=== PATIENT | female | born 1985 | race Hispanic/Latino ===

== ENCOUNTER 2019-07-23 11:32 | Observation (INO) | payer OTHER ==
[~2019-07-23] VITALS: Ht 160 cm; Wt 96.6 kg
[2019-07-23] MEDS ORDERED: PHARMACY COMMUNICATION MISC SCH (12:30)
[2019-07-23 12:51] LABS: BASOPHILS % (AUTO) 0.4 % (0.0-5.0); EOSINOPHILS % (AUTO) 0.6 % (0.0-8.0); HEMATOCRIT 28.5 % (36-48); LYMPHOCYTES % (AUTO) 26.2 % (21.0-51.0); MEAN CORPUSCULAR HEMOGLOBIN 30.1 pg (27.0-33.0); MEAN CORPUSCULAR HGB CONC 35.9 g/dL (32.0-36.0); MEAN CORPUSCULAR VOLUME 83.8 fL (79-99); MONOCYTES % (AUTO) 5.7 % (3.0-13.0); NEUTROPHILS % (AUTO) 67.1 % (40.0-77.0); PLATELET COUNT (AUTO) 234 K/uL (130-400); RED BLOOD CELL COUNT(AUTO) 3.41 MIL/uL (4.00-5.50); RED CELL DISTRIBUTION WIDTH 12.2 % (11.0-15.5); WHITE BLOOD COUNT (AUTO) 7.2 K/uL (4.8-10.8)
[2019-07-23 12:52] LABS: APPEARANCE,URINE Clear (CLEAR); BILIRUBIN,URINE Negative (NEGATIVE); COLOR,URINE Yellow (YELLOW); GLUCOSE, URINE (UA) Negative (NEGATIVE); KETONES,URINE Negative (NEGATIVE); LEUKOCYTE ESTERASE ,URINE Negative (NEGATIVE); NITRATE,URINE Negative (NEGATIVE); OCCULT BLOOD,URINE Negative (NEGATIVE); PH,URINE 6.5 (5.0-8.0); PROTEIN,URINE Negative (NEGATIVE); UROBILINOGEN,URINE 0.2 mg/dL (0.2-1.0)
[2019-07-23 13:03] LABS: CREATININE 0.8 mg/dL (0.5-1.5); POTASSIUM 3.3 mmol/L (3.5-5.1)
[2019-07-23 13:04] LABS: INR 0.89 (0.85-1.15); PARTIAL THROMBOPLASTIN TIME 24.3 SEC (26.3-35.5); PROTHROMBIN TIME 9.4 SEC (9.6-11.6)
[2019-07-23 13:07] LABS: ALBUMIN 2.7 g/dL (3.5-5.0); BILIRUBIN,TOTAL 1.1 mg/dL (0.2-1.0); TOTAL PROTEIN, SERUM 6.5 g/dL (6.0-8.3); URIC ACID 2.5 mg/dL (2.6-7.2)
[2019-07-23] MEDS: CELESTONE SOLUSPAN 6 MG/ML 5ML VIAL IM SCH (13:56)
[2019-07-23 15:11] VITALS: BP 159/92
[2019-07-23] MEDS: ACETAMINOPHEN EXTRA STRENGTH 500 MG TABLET PO PRN (15:28)
[2019-07-23] MEDS ORDERED: PNV1TABL17 PO (17:53)
[2019-07-23] MEDS ORDERED: FLU VACC QS2019-20 36MOS UP/PF 60 MCG/0.5 ML ML IM SCH (18:20)
[2019-07-23] MEDS ORDERED: FLU VACC QS2019-20 36MOS UP/PF 60 MCG/0.5 ML ML IM ONE (18:30)
[2019-07-23 19:31] VITALS: BP 193/88
[2019-07-23] MEDS: LACTATED RINGERS 1000ML 1,000 ML IV PRN (22:42)
[2019-07-23 23:27] VITALS: BP 140/88
[2019-07-24] MEDS: ACETAMINOPHEN EXTRA STRENGTH 500 MG TABLET PO PRN ×2 (03:36→08:55)
[2019-07-24 03:37] VITALS: BP 146/82
[2019-07-24] MEDS: LACTATED RINGERS 1000ML 1,000 ML IV PRN ×2 (05:46→14:32)
[2019-07-24 07:56] VITALS: BP 148/83
[2019-07-24 11:48] VITALS: BP 119/72
[2019-07-24 13:29] LABS: CREATININE,SERUM FOR CRCL 0.8 mg/dL (0.6-1.3)
[2019-07-24 13:30] LABS: COLLECTION PERIOD,URINE 24 HR; TOTAL VOLUME 24HRS,URINE 2650 mL; TPROTEIN TIMED,URINE 17 mg/dL; TPROTEIN U,24HR CALC 451 mg/24HR (0-165)
[2019-07-24] MEDS: CELESTONE SOLUSPAN 6 MG/ML 5ML VIAL IM SCH (13:31)
[2019-07-24 15:25] VITALS: BP 146/90
--- NOTE | 2019-07-24 16:26 | NUR ---
SPOKE WITH DR. MATT TO GIVE RESULTS OF 24 HOUR URINE. STATES PATIENT IS OKAY TO DISCHARGE HOME ON BEDREST, NO WORKING AND TO FOLLOW UP WITH RITESH SHAIKH ON Monday07/26/19
--- NOTE | 2019-07-24 17:20 | NUR ---
INSTRUCTION DISCHARGE INSTRUCTIONS READ AND EXPLAINED TO PATIENT. REVIEWED SYMPTOMS OF HIGH BP, IMPORTANCE OF KEEPING FOLLOW UP APPOINTMENT. PATIENT VOICED UNDERSTANDING.
--- NOTE | 2019-07-24 17:30 | NUR ---
DISCHARGE PATIENT LEFT UNIT VIA WHEELCHAIR. PERSONAL VEHICLE USED FOR TRANSPORTATION. NO COMPLAINTS OR CONCERNS ADDRESSED ON DISCHARGE.
== END 2019-07-24 17:30 | disposition home or self-care (01) ==
LOC: LDH 11:32 → WSH 15:08
PROVIDERS: ADMIT Specialist; ATTEND Specialist
DX: O16.3 Unspecified maternal hypertension, third trimester (principal); O34.29 Maternal care due to uterine scar from other previous surgery; Z3A.34 34 weeks gestation of pregnancy; Z23 Encounter for immunization
CPT/HCPCS: 36415; 76819; 80053; 81003; 82575; 84156; 84550; 85025; 85384; 85610; 85730; 96372 ×2; G0008; G0378 ×29; J0702 ×3; J7120 ×2; 96360

== ENCOUNTER 2019-07-26 16:06 | Observation (INO) | payer OTHER ==
[~2019-07-26] VITALS: Ht 160 cm; Wt 98.9 kg
[~2019-07-26 16:06] MED LIST: PNV1TABL17 PO
[2019-07-26 16:21] VITALS: BP 156/94
[2019-07-26 17:07] LABS: BASOPHILS % (AUTO) 0.3 % (0.0-5.0); EOSINOPHILS % (AUTO) 0.3 % (0.0-8.0); HEMATOCRIT 28.2 % (36-48); LYMPHOCYTES % (AUTO) 20.5 % (21.0-51.0); MEAN CORPUSCULAR HEMOGLOBIN 30.1 pg (27.0-33.0); MEAN CORPUSCULAR HGB CONC 35.1 g/dL (32.0-36.0); MEAN CORPUSCULAR VOLUME 85.7 fL (79-99); MONOCYTES % (AUTO) 9.9 % (3.0-13.0); NUCLEATED RED BLOOD CELLS 0.2 % (0.0-0.19); PLATELET COUNT (AUTO) 214 K/uL (130-400); RED CELL DISTRIBUTION WIDTH 12.5 % (11.0-15.5); WHITE BLOOD COUNT (AUTO) 10.3 K/uL (4.8-10.8)
[2019-07-26 17:10] LABS: APPEARANCE,URINE Clear (CLEAR); BILIRUBIN,URINE Negative (NEGATIVE); COLOR,URINE Yellow (YELLOW); GLUCOSE, URINE (UA) Negative (NEGATIVE); KETONES,URINE Negative (NEGATIVE); LEUKOCYTE ESTERASE ,URINE Negative (NEGATIVE); NITRATE,URINE Negative (NEGATIVE); OCCULT BLOOD,URINE Negative (NEGATIVE); PH,URINE 6.5 (5.0-8.0); PROTEIN,URINE Negative (NEGATIVE); UROBILINOGEN,URINE 0.2 mg/dL (0.2-1.0)
[2019-07-26 17:17] LABS: CREATININE 0.7 mg/dL (0.5-1.5); POTASSIUM 3.3 mmol/L (3.5-5.1)
[2019-07-26 17:23] LABS: ALBUMIN 2.7 g/dL (3.5-5.0); BILIRUBIN,TOTAL 0.9 mg/dL (0.2-1.0); TOTAL PROTEIN, SERUM 6.5 g/dL (6.0-8.3); URIC ACID 2.5 mg/dL (2.6-7.2)
[2019-07-26 17:35] LABS: INR 0.87 (0.85-1.15); PARTIAL THROMBOPLASTIN TIME 22.6 SEC (26.3-35.5); PROTHROMBIN TIME 9.2 SEC (9.6-11.6)
== END 2019-07-26 18:00 | disposition home or self-care (01) ==
LOC: LDH 16:06
PROVIDERS: ADMIT Specialist; ATTEND Specialist
DX: O26.893 Other specified pregnancy related conditions, third trimester (principal); R10.2 Pelvic and perineal pain; Z3A.34 34 weeks gestation of pregnancy
CPT/HCPCS: 36415; 59025; 76819; 80053; 81003; 84550; 85025; 85384; 85610; 85730; G0378 ×3

== ENCOUNTER 2019-07-29 14:22 | Inpatient (IN) | payer OTHER ==
[~2019-07-29] VITALS: Ht 160 cm; Wt 98.4 kg
[2019-07-29 15:46] LABS: APPEARANCE,URINE SL CLOUDY (CLEAR); BILIRUBIN,URINE SMALL (NEGATIVE); COLOR,URINE YELLOW (YELLOW); GLUCOSE, URINE (UA) NEGATIVE (NEGATIVE); KETONES,URINE 5 mg/dL (NEGATIVE); LEUKOCYTE ESTERASE ,URINE NEGATIVE (NEGATIVE); NITRATE,URINE NEGATIVE (NEGATIVE); OCCULT BLOOD,URINE NEGATIVE (NEGATIVE); PROTEIN,URINE 100 mg/dL (NEGATIVE); UROBILINOGEN,URINE 0.2 mg/dL (0.2-1.0)
[2019-07-29 15:46] LABS: BASOPHILS % (AUTO) 0.5 % (0.0-5.0); EOSINOPHILS % (AUTO) 0.4 % (0.0-8.0); HEMATOCRIT 28.4 % (36-48); LYMPHOCYTES % (AUTO) 26.8 % (21.0-51.0); MEAN CORPUSCULAR HEMOGLOBIN 29.4 pg (27.0-33.0); MEAN CORPUSCULAR HGB CONC 35.2 g/dL (32.0-36.0); MEAN CORPUSCULAR VOLUME 83.6 fL (79-99); MONOCYTES % (AUTO) 6.1 % (3.0-13.0); NEUTROPHILS % (AUTO) 66.2 % (40.0-77.0); NUCLEATED RED BLOOD CELLS 0.1 % (0.0-0.19); PLATELET COUNT (AUTO) 231 K/uL (130-400); RED BLOOD CELL COUNT(AUTO) 3.39 MIL/uL (4.00-5.50); RED CELL DISTRIBUTION WIDTH 12.1 % (11.0-15.5); WHITE BLOOD COUNT (AUTO) 7.7 K/uL (4.8-10.8)
[2019-07-29 15:55] LABS: CREATININE 0.8 mg/dL (0.5-1.5); POTASSIUM 3.1 mmol/L (3.5-5.1)
[2019-07-29 16:00] LABS: ALBUMIN 2.6 g/dL (3.5-5.0); BILIRUBIN,TOTAL 1.3 mg/dL (0.2-1.0); TOTAL PROTEIN, SERUM 6.4 g/dL (6.0-8.3); URIC ACID 3.4 mg/dL (2.6-7.2)
[2019-07-29 16:01] LABS: BACTERIA,URINE Few /HPF (None Seen); CALCIUM OXALATE CRYSTALS,UR Few /LPF (None Seen); RBC,URINE 0-1 /HPF (0-1); SQUAMOUS EPITHELIAL CELL,UR Many /HPF (0-2)
[2019-07-29 16:02] LABS: MUCUS,URINE Rare LPF (None Seen)
[2019-07-29 16:11] LABS: INR 0.91 (0.85-1.15); PARTIAL THROMBOPLASTIN TIME 23.4 SEC (26.3-35.5); PROTHROMBIN TIME 9.6 SEC (9.6-11.6)
[2019-07-29] MEDS ORDERED: ACETAMINOPHEN-CODEINE 300/30MG TAB PO ONE (17:55)
[2019-07-29] MEDS ORDERED: HYDRALAZINE HCL 20 MG/ML VIAL IV SCH (18:15)
[2019-07-29] MEDS ORDERED: HYDRALAZINE HCL 20 MG/ML VIAL IV PRN (19:15)
[2019-07-29 19:38] VITALS: BP 169/86
[2019-07-30] MEDS ORDERED: LACTATED RINGERS 1000ML 1,000 ML IV ONE (00:35)
[2019-07-30] MEDS: LABETALOL HCL 200 MG TABLET PO SCH ×3 (00:51→21:20)
[2019-07-30] MEDS ORDERED: ACETAMINOPHEN 325 MG TAB ONE ×2 (02:36→17:45)
[2019-07-30] MEDS ORDERED: ACETAMINOPHEN 325 MG TAB PO ONE (02:45)
[2019-07-30] MEDS: LACTATED RINGERS 1000ML 1,000 ML IV SCH ×2 (08:45→16:18)
[2019-07-30 08:55] LABS: RAPID PLASMA REAGIN NONREACTIVE (NONREACTIVE)
[2019-07-30 09:07] VITALS: BP 128/91
--- NOTE | 2019-07-30 13:25 | NUR ---
PATIENT RESTING ON RIGHT SIDE WITH LIGHTS DOWN. CALL LIGHT LEFT IN REACH.
[2019-07-30 15:30] VITALS: BP 143/93
[2019-07-30 16:15] LABS: CREATININE,SERUM FOR CRCL 0.8 mg/dL (0.6-1.3)
[2019-07-30 16:17] LABS: COLLECTION PERIOD,URINE 24 HR
[2019-07-30 16:18] LABS: TOTAL VOLUME 24HRS,URINE 1900 mL; TPROTEIN TIMED,URINE 53 mg/dL; TPROTEIN U,24HR CALC 1007 mg/24HR (0-165)
--- NOTE | 2019-07-30 17:10 | NUR ---
DR. MATT INFORMED OF RESULTS OF 24 HOUR URINE COLLECTION. NEW ORDERS RECEIVED.
[2019-07-30] MEDS ORDERED: HYDRALAZINE HCL 20 MG/ML VIAL IV PRN (17:30)
[2019-07-30] MEDS ORDERED: ACETAMINOPHEN 325 MG TAB PO PRN (17:30)
--- NOTE | 2019-07-30 17:49 | NUR ---
MEDICATED PT WITH APRESOLINE IV FOR B/P OF 150/110.
--- NOTE | 2019-07-30 19:00 | NUR ---
V/S VITAL SIGNS TAKE. B/P AT 131/93, PULSE: 84 BPM; PULSE OX: 95% ON ROOM AIR.
[2019-07-30 19:30] VITALS: BP 131/93
[2019-07-31] MEDS: LACTATED RINGERS 1000ML 1,000 ML IV SCH ×2 (00:21→07:59)
[2019-07-31 00:23] VITALS: BP 139/92
[2019-07-31 03:55] VITALS: BP 149/91
--- NOTE | 2019-07-31 07:35 | NUR ---
NST NST STARTED AT THIS TIME.
[2019-07-31 07:40] VITALS: BP_SYST 165; BP_SYST 173; BP_DIAS 101; BP_DIAS 112
--- NOTE | 2019-07-31 07:40 | NUR ---
BP BP RECORDED 173/112. BP RETAKEN AND RECORDED 165/101. NO C/O HEADACHE OR VISUAL DISTURBANCES. EDEMA NOTED TO UPPER EXTREMITIES. MADE AWARE.
--- NOTE | 2019-07-31 07:50 | NUR ---
MD BARRAZA ROUNDING ON PATIENT. POC DISCUSSED. NEW ORDERS RECEIVED. APRESOLINE 10MG TO BE GIVEN NOW AND TRANSFER TO L&D.
--- NOTE | 2019-07-31 07:58 | NUR ---
NST DISCONNECTED. PATIENT BEING TRANSFERRED TO L&D BY LESTER SILVA.
[2019-07-31] MEDS ORDERED: LACTATED RINGERS 1000ML 1,000 ML IV SCH ×2 (08:06→14:27)
[2019-07-31] MEDS ORDERED: CEFAZOLIN SODIUM 1 GM VIAL IVP PRN (08:15)
[2019-07-31] MEDS ORDERED: MAGNESIUM 4GM PREMIX 100ML 100 ML IV PRN ×2 (08:15→14:30)
[2019-07-31] MEDS ORDERED: CALCIUM GLUCONATE 1 GM/10 ML VIAL IV PRN (08:15)
[2019-07-31] MEDS ORDERED: MAGNESIUM SULFATE 1,000 ML IV ONE (08:22)
[2019-07-31] MEDS ORDERED: MAGNESIUM 4GM PREMIX 100ML 100 ML IV ONE (08:22)
[2019-07-31] MEDS: MAGNESIUM SULFATE 1,000 ML IV PRN (08:35)
[2019-07-31] MEDS ORDERED: LABETALOL 20 MG/4 ML DISP.SYRIN IV SCH (10:15)
[2019-07-31] MEDS ORDERED: OXYTOCIN 10 USP UNITS/ML ONE ×2 (11:52→13:07)
[2019-07-31] MEDS ORDERED: DURAMORPH PF1 MG/ML 10ML AMP IV ONE (11:53)
[2019-07-31] MEDS ORDERED: CEFAZOLIN SODIUM 1 GM VIAL IVP ONE (12:30)
[2019-07-31] MEDS ORDERED: PHENYLEPHRINE HCL 10 MG/ML 1ML VIAL IV ONE (12:39)
[2019-07-31] MEDS ORDERED: MEPERIDINE-PF 75 MG/ML SYG IM PRN (14:30)
[2019-07-31] MEDS ORDERED: DEXTROSE 5 %-0.45 % NACL 1,000 ML IV PRN (14:30)
[2019-07-31] MEDS ORDERED: SODIUM CHLORIDE 0.9% 10 ML VIAL IVP PRN (14:30)
[2019-07-31] MEDS ORDERED: PROMETHAZINE HCL 25 MG/ML 1ML AMPULE IM PRN (14:30)
[2019-07-31] MEDS ORDERED: OXYTOCIN-LR 20 UNITS/1000 ML 1,000 ML IV PRN (14:30)
[2019-07-31] MEDS ORDERED: ONDANSETRON HCL 4 MG/2 ML VIAL ONE ×2 (15:52→20:17)
[2019-07-31] MEDS ORDERED: LABETALOL 20 MG/4 ML DISP.SYRIN IV PRN (16:15)
[2019-07-31] MEDS ORDERED: LABETALOL 20 MG/4 ML DISP.SYRIN IV ONE (16:16)
[2019-07-31] MEDS ORDERED: DiphenhydrAMINE HCL 50 MG/ML VIAL ONE (20:18)
[2019-07-31] MEDS ORDERED: LABETALOL HCL 100 MG TABLET ONE ×2 (21:16→21:37)
[2019-08-01] MEDS: LACTATED RINGERS 1000ML 1,000 ML IV SCH (01:55)
[2019-08-01 04:08] LABS: HEPATITIS Bs ANTIGEN SCREEN P Negative (Negative)
[2019-08-01 04:14] VITALS: BP 121/64
[2019-08-01 07:11] LABS: HEMATOCRIT 27.9 % (36-48); MEAN CORPUSCULAR HEMOGLOBIN 29.3 pg (27.0-33.0); MEAN CORPUSCULAR HGB CONC 34.4 g/dL (32.0-36.0); MEAN CORPUSCULAR VOLUME 85.2 fL (79-99); PLATELET COUNT (AUTO) 198 K/uL (130-400); RED BLOOD CELL COUNT(AUTO) 3.28 MIL/uL (4.00-5.50); RED CELL DISTRIBUTION WIDTH 12.3 % (11.0-15.5); WHITE BLOOD COUNT (AUTO) 8.2 K/uL (4.8-10.8)
[2019-08-01] MEDS ORDERED: LABETALOL HCL 100 MG TABLET PO SCH (09:00)
[2019-08-01] MEDS ORDERED: LABETALOL 20 MG/4 ML DISP.SYRIN IV PRN (14:15)
[2019-08-01] MEDS ORDERED: IBUPROFEN 800 MG TAB PO PRN (16:00)
[2019-08-01] MEDS ORDERED: ACETAMINOPHEN-CODEINE 300/30MG TAB PO PRN (16:00)
[2019-08-01] MEDS: LABETALOL HCL 100 MG TABLET PO SCH (20:42)
[2019-08-02] MEDS: MAGNESIUM SULFATE 1,000 ML IV PRN (00:21)
[2019-08-02] MEDS: LACTATED RINGERS 1000ML 1,000 ML IV SCH (00:21)
[2019-08-02] MEDS ORDERED: ACETAMINOPHEN EXTRA STRENGTH 500 MG TABLET PO PRN (08:45)
[2019-08-02] MEDS ORDERED: ACETAMINOPHEN-CODEINE 300/30MG TAB PO PRN (08:45)
[2019-08-02] MEDS ORDERED: HYDROCODONE/ACETAMINOPHEN 5/325 MG TAB PO PRN (08:45)
[2019-08-02] MEDS ORDERED: LANOLIN 30GM OINTMENT TP PRN (08:45)
[2019-08-02] MEDS ORDERED: BISACODYL 10 MG SUPP.RECT RC PRN (08:45)
[2019-08-02] MEDS: LABETALOL HCL 100 MG TABLET PO SCH ×2 (09:00→21:00)
--- NOTE | 2019-08-02 09:20 | NUR ---
PATIENT ARRIVED TO UNIT VIA BED FROM LABOR AND DELIVERY. FUNDUS IS FIRM,BLEEDING IS SCANT. DRESSING REMOVED. MINIMAL SANGUINOUS OOZING NOTED TO RIGHT SIDE OF INCISION. STERISTRIPS APPLIED, ABD PAD PLACED OVER INCISION. ABDOMINAL BINDER APPLIED. TEDS TO LOWER BILATERALLY EXTREMITIES. CALL LIGHT LEFT IN REACH. ADVISED PATIENT TO CALL WHEN NEEDING TO AMBULATE FOR THE FIRST TIME. PT. VOICED UNDERSTANDING.
[2019-08-02 09:22] VITALS: BP 142/79
--- NOTE | 2019-08-02 10:45 | NUR ---
PATIENT VISITING BABY IN NURSERY. WHEELCHAIR USED FOR TRANSPORTATION.
--- NOTE | 2019-08-02 12:50 | NUR ---
PATIENT RETURNED TO ROOM VIA WHEELCHAIR ACCOMPANIED BY KIRSTIE NOBLES. ADVISED PATIENT TO AMBULATE IN HALLWAY TO PREVENT BLOODCLOTS. PT. VOICED UNDERSTANDING.
[2019-08-02] MEDS: IBUPROFEN 600 MG TABLET PO PRN (13:53)
[2019-08-02 15:26] VITALS: BP 141/85
--- NOTE | 2019-08-02 18:09 | NUR ---
PATIENT IN WHEELCHAIR TO NURSERY TO VISIT BABY.
[2019-08-02] MEDS ORDERED: DIPH,PERTUSS(ACELL),TET VAC/PF 0.5 ML VIAL IM ONE ×2 (19:00→21:46)
[2019-08-02 19:58] VITALS: BP 139/96
[2019-08-02] MEDS: SIMETHICONE 80 MG TAB.CHEW PO PRN (21:00)
[2019-08-02] MEDS: DOCUSATE SODIUM 100 MG CAP PO SCH (21:01)
[2019-08-03] MEDS: IBUPROFEN 600 MG TABLET PO PRN ×3 (00:16→14:11)
[2019-08-03 00:20] VITALS: BP 145/92
[2019-08-03 03:55] VITALS: BP 130/80
[2019-08-03 08:00] VITALS: BP 142/103
[2019-08-03] MEDS: DOCUSATE SODIUM 100 MG CAP PO SCH (08:44)
[2019-08-03] MEDS: SIMETHICONE 80 MG TAB.CHEW PO PRN ×2 (08:44→14:10)
[2019-08-03] MEDS: LABETALOL HCL 100 MG TABLET PO SCH (08:45)
--- NOTE | 2019-08-03 09:00 | NUR ---
DR. RUTH ROUNDED AND DISCHARGED PATIENT TO HOME. PATIENT DENIES HAVING ANY PROBLEMS EXCEPT FOR HER BLOOD PRESSURE AND DENIES ANY HEADACHE, CHEST PAIN OR BLURRED VISION. PATIENT INFORMED OF DISCHARGE ON TRANDATE 300MGS BID.
[2019-08-03 12:00] VITALS: BP 132/75
--- NOTE | 2019-08-03 14:15 | NUR ---
DISCHARGE INSTRUCTIONS GIVEN TO PATIENT AND SCRIPT FOR TRANDATE AND TYLENOL #3. PATIENT INSTRUCTED ON DOSAGE AND FREQUENCY AND VERBALIZED UNDERSTANDING. MOTRIN WAS GIVEN AT THIS TIME FOR MILD DISCOMFORT.
--- NOTE | 2019-08-03 14:25 | NUR ---
WAS TAKEN VIA W/C CARRYING BABY IN ARMS TO FAMILY VEHICLE. PATIENT IS STABLE AND DENIES ANY PROBLEMS AT THIS TIME AND TOLERATED ACTIVITY WELL.
== END 2019-08-03 14:25 | disposition home or self-care (01) | DRG 783 ==
LOC: OBSVTOIN 14:22 → INTOOBSV 14:22 → LDH 14:22 → UNDOADMIN 14:22 → WSH 07-30 09:07 → LDH 07-30 09:07 → WSH 07-30 09:07 → LDH 07-31 08:24 → WSH 08-02 09:20
PROVIDERS: ADMIT Specialist; ATTEND Specialist
PROC: 0UB70ZZ Excision of Bilateral Fallopian Tubes, Open Approach (ICD-10-PCS; 2019-07-31)
PROC: 3E0234Z Introduction of Serum, Toxoid and Vaccine into Muscle, Percutaneous Approach (ICD-10-PCS; 2019-07-31)
PROC: 10D00Z1 Extraction of Products of Conception, Low, Open Approach (ICD-10-PCS; principal; 2019-07-31 12:25)
DX: O34.211 Maternal care for low transverse scar from previous cesarean delivery (principal); O60.14X0 Preterm labor third trimester with preterm delivery third trimester, not applicable or unspecified; O14.14 Severe pre-eclampsia complicating childbirth; Z30.2 Encounter for sterilization; Z37.0 Single live birth; Z3A.35 35 weeks gestation of pregnancy; Z23 Encounter for immunization
CPT/HCPCS: 36415; 59025; 59510; 76819; 80053; 81001; 81003; 82575; 83735; 84156; 84550; 85025; 85027; 85384; 85610; 85730; 86592; 86701; 86850; 86900; 86901; 87340; 87390; 88302; 90715; 96360; 96361; A4344; G0378; J0360; J0690; J1200; J2274; J2370; J2405; J2590; J3475; J7120